=== PATIENT | female | born 1955 | race Caucasian/White ===

== ENCOUNTER 2022-07-27 03:01 | Emergency (ER) | payer OTHER, MEDICARE ==
[2022-07-27 03:17] VITALS: BP 131/86; PULSE 82; RESP 20; TEMP 98; BMI 44.8
== END 2022-07-27 05:30 | disposition home or self-care (01) ==
LOC: JER 03:01
DX: S60.222A Contusion of left hand, initial encounter (principal); W01.0XXA Fall on same level from slipping, tripping and stumbling without subsequent striking against object, initial encounter
CPT/HCPCS: 73110-TC-LT-FY; 73130-TC-LT-FY; 99283-25